=== PATIENT | male | born 1975 | race Two or more races ===

== ENCOUNTER 2019-05-10 12:26 | Emergency (ER) | payer SELFPAY ==
[2019-05-10] MEDS ORDERED: NORMAL SALINE 1000 ML 1,000 ML IV ONE ×2 (14:11→15:18)
--- NOTE | 2019-05-10 14:22 | ER Document Report ---
ED General - General Chief Complaint: Dizziness Stated Complaint: DIFFICULTY BREATHING Time Seen by Provider: 05/10/19 13:58 Notes: Patient is a otherwise healthy 43-year-old male presents to the emergency department for generalized dizziness. 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 States he has not been drinking much water recently. States he also had nothing to eat today because he was "in a nelson." Patient states when he was outside he had a brief episode of dizziness. States he sat down and felt better. At no time did patient complain of chest pain, shortness of breath, nausea, vomiting, diarrhea, headache. States his employer told him to go to occupational health to get a urine drug test. States his employer typically does random drug testing. States when he presented to occupational health they told him he had to come to the emergency department for full evaluation. Patient is denying any drug use. States again he has not been drinking fluids like he should and was out in the sun on the roof today. Patient is currently denying all complaints. States after sitting inside in the air conditioning he no longer feels dizzy. Patient continues to deny chest pain, shortness of breath, lightheadedness, dizziness, weakness, headache, nausea, vomiting, diarrhea, abdominal pain. - Related Data Allergies/Adverse Reactions: No Known Allergies Allergy (Unverified 05/10/19 12:38) Past Medical History - General Information source: Patient - Social History Smoking Status: Current Every Day Smoker Chew tobacco use (# tins/day): No Frequency of alcohol use: None Drug Abuse: None Family History: Reviewed & Not Pertinent Patient has suicidal ideation: No Patient has homicidal ideation: No Renal/ Medical History: Denies: Hx Peritoneal Dialysis Review of Systems - Review of Systems Constitutional: See HPI EENT: No symptoms reported Cardiovascular: No symptoms reported Respiratory: No symptoms reported Gastrointestinal: No symptoms reported Genitourinary: No symptoms reported Male Genitourinary: No symptoms reported Musculoskeletal: No symptoms reported Skin: No symptoms reported Hematologic/Lymphatic: No symptoms reported Neurological/Psychological: See HPI Physical Exam - Vital signs Vitals: Temp Pulse Resp BP Pulse Ox 98.0 F 82 14 143/85 H 97 05/10/19 12:41 05/10/19 12:41 05/10/19 12:41 05/10/19 12:41 05/10/19 12:41 - Notes Notes: GENERAL: Alert, interacts well. No acute distress. HEAD: Normocephalic, atraumatic. EYES: Pupils equal, round, and reactive to light. Extraocular movements intact. ENT: Oral mucosa moist, tongue midline. NECK: Full range of motion. Supple. Trachea midline. LUNGS: Clear to auscultation bilaterally, no wheezes, rales, or rhonchi. No respiratory distress. HEART: Regular rate and rhythm. No murmur ABDOMEN: Soft, non-tender. Non-distended. Bowel sounds present in all 4 quadrants. EXTREMITIES: Moves all 4 extremities spontaneously. No edema, normal radial and dorsalis pedis pulses bilaterally. No cyanosis. 5 out of 5 strength noted all 4 extremities. BACK: no cervical, thoracic, lumbar midline tenderness. No saddle anesthesia, normal distal neurovascular exam. NEUROLOGICAL: Alert and oriented x3. Normal speech. cranial nerves II through XII grossly intact PSYCH: Normal affect, normal mood. SKIN: Warm, dry, normal turgor. No rashes or lesions noted. Course - Re-evaluation Re-evalutation: EKG shows sinus rhythm rate of 75, QTC 398, no ST segment elevations or depressions noted. Laboratory 05/10/19 05/10/19 05/10/19 14:35 14:35 16:11 WBC 11.4 H RBC 5.53 Hgb 16.7 Hct 49.1 MCV 89 MCH 30.2 MCHC 34.1 RDW 13.8 Plt Count 213 Seg Neutrophils % 71.5 Lymphocytes % 22.1 Monocytes % 5.2 Eosinophils % 0.6 Basophils % 0.6 Absolute Neutrophils 8.2 Absolute Lymphocytes 2.5 Absolute Monocytes 0.6 Absolute Eosinophils 0.1 Absolute Basophils 0.1 Sodium 141.1 Potassium 4.5 Chloride 102 Carbon Dioxide 30 Anion Gap 9 BUN 16 Creatinine 1.17 Est GFR ( Amer) > 60 Est GFR (Non-Af Amer) > 60 Glucose 92 Calcium 9.9 Total Bilirubin 0.7 Direct Bilirubin 0.3 Neonat Total Bilirubin Not Reportable Neonat Direct Bilirubin Not Reportable Neonat Indirect Bili Not Reportable AST 28 ALT 33 Alkaline Phosphatase 52 Creatine Kinase 404 H Total Protein 7.6 Albumin 4.7 Urine Color YELLOW Urine Appearance CLEAR Urine pH 6.0 Ur Specific [place] 1.011 Urine Protein NEGATIVE Urine Glucose (UA) NEGATIVE Urine Ketones NEGATIVE Urine Blood NEGATIVE Urine Nitrite NEGATIVE Urine Bilirubin NEGATIVE Urine Urobilinogen NEGATIVE Ur Leukocyte Esterase NEGATIVE Urine WBC (Auto) 1 Urine RBC (Auto) 0 Urine Mucus (Auto) RARE Urine Ascorbic Acid NEGATIVE Patient's CK was noted to be 404, treated with 2 L of normal saline solution. Patient's urine was collected after 2 L of normal saline solution as patient stated he was unable to urinate because he had not anything to drink today. Patient was given a p.o. challenge in the emergency department and continues without any complaints. Continues to state he is no longer dizzy, no chest pain or shortness of breath no lightheadedness no weakness no headache. Discussed at length with patient need to stay well-hydrated and follow-up with primary care provider for continued medical treatment. At this time will discharge with return precautions and follow-up recommendatio ns. Verbal discharge instructions given a the bedside and opportunity for questions given. Medication warnings reviewed. Patient is in agreement with this plan and has verbalized understanding of return precautions and the need for primary care follow-up in the next 24-72 hours. This medical record was dictated with voice recognizing software. There may be grammatical, syntax errors that are unintended. - Vital Signs Vital signs: Temp Pulse Resp BP Pulse Ox 98.2 F 82 18 142/85 H 100 05/10/19 17:07 05/10/19 17:07 05/10/19 17:07 05/10/19 17:07 05/10/19 17:07 - Laboratory Result Diagrams: 05/10/19 14:35 05/10/19 14:35 Laboratory results interpreted by me: 05/10/19 05/10/19 14:35 14:35 WBC 11.4 H Creatine Kinase 404 H Discharge - Discharge Clinical Impression: Dehydration, Dizziness Condition: Stable Disposition: HOME, SELF-CARE Instructions: Dehydration ([facility]), Dizziness ([facility]) Additional Instructions: As we discussed you have been seen and treated in the emergency department for potential dehydration which is causing her dizziness. Please make sure you are eating and drinking normally. Please also make sure you are outside in the sun working you drink plenty of water. Please follow-up with your primary care provider in the next 24 to 48 hours. Please return to the emergency room for any further concerns. Forms: Return to Work
[2019-05-10 14:55] LABS: ABSOLUTE BASOPHILS # (AUTO) 0.1 10^3/uL (0.0-0.2); ABSOLUTE EOSINOPHILS # (AUTO) 0.1 10^3/uL (0.0-0.6); ABSOLUTE LYMPHOCYTES (AUTO) 2.5 10^3/uL (0.5-4.7); ABSOLUTE MONOCYTES (AUTO) 0.6 10^3/uL (0.1-1.4); ABSOLUTE NEUT (AUTO) 8.2 10^3/uL (1.7-8.2); BASOPHILS % (AUTO) 0.6 % (0-2); EOSINOPHILS % (AUTO) 0.6 % (0-6); HEMATOCRIT 49.1 % (37.9-51.0); HEMOGLOBIN 16.7 g/dL (13.5-17.0); LYMPHOCYTES % (AUTO) 22.1 % (13-45); MEAN CORPUSCULAR HEMOGLOBIN 30.2 pg (27.0-33.4); MEAN CORPUSCULAR HGB CONC 34.1 g/dL (32.0-36.0); MEAN CORPUSCULAR VOLUME 89 fl (80-97); MONOCYTES % (AUTO) 5.2 % (3-13); PLATELET COUNT 213 10^3/uL (150-450); RED BLOOD COUNT 5.53 10^6/uL (4.35-5.55); RED CELL DISTRIBUTION WIDTH 13.8 % (11.5-14.0); SEGMENTED NEUTROPHILS % (AUTO) 71.5 % (42-78); TOTAL CELLS COUNTED % (AUTO) 100 %; WHITE BLOOD COUNT 11.4 10^3/uL (4.0-10.5)
[2019-05-10 15:12] LABS: ALANINE AMINOTRANSFERASE 33 U/L (21-72); ALBUMIN 4.7 g/dL (3.5-5.0); ALKALINE PHOSPHATASE 52 U/L (38-126); ANION GAP 9 (5-19); ASPARTATE AMINO TRANSFERASE 28 U/L (17-59); BILIRUBIN,DIRECT 0.3 mg/dL (0.0-0.4); BILIRUBIN,TOTAL 0.7 mg/dL (0.2-1.3); BLOOD UREA NITROGEN 16 mg/dL (7-20); CALCIUM 9.9 mg/dL (8.4-10.2); CARBON DIOXIDE 30 mmol/L (22-30); CHLORIDE 102 mmol/L (98-107); CREATINE KINASE 404 U/L (55-170); GLUCOSE 92 mg/dL (75-110); POTASSIUM 4.5 mmol/L (3.6-5.0); TOTAL PROTEIN 7.6 g/dL (6.3-8.2)
[2019-05-10 16:38] LABS: APPEARANCE,URINE CLEAR; BILIRUBIN,URINE NEGATIVE (NEGATIVE); COLOR,URINE YELLOW; GLUCOSE, URINE NEGATIVE (NEGATIVE); KETONES,URINE NEGATIVE (NEGATIVE); LEUKOCYTE ESTERASE,URINE NEGATIVE (NEGATIVE); NITRITE,URINE NEGATIVE (NEGATIVE); PROTEIN,URINE NEGATIVE (NEGATIVE); URINE SPECIFIC GRAVITY 1.011; UROBILINOGEN,URINE NEGATIVE mg/dL (<2.0)
[2019-05-10 17:08] VITALS: BP 142/85
--- NOTE | 2019-05-10 23:11 | EKG REPORT ---
SEVERITY:- NORMAL ECG - SINUS RHYTHM : Confirmed by: Kriss Coleman 10-May-2019 23:10:26
== END 2019-05-10 17:07 | disposition home or self-care (01) ==
LOC: ER 12:26
DX: E86.0 Dehydration (principal); R42 Dizziness and giddiness; F17.200 Nicotine dependence, unspecified, uncomplicated
CPT/HCPCS: 93005; 99284; 96360; 96361; 36415; 82550; 85025; 80053; 81001; 93010; J7030